=== PATIENT | female | born 1940 | race Caucasian/White ===

== ENCOUNTER → 2017-09-12 | Outpatient (CLI) | payer MEDICARE ==
--- NOTE | 2017-09-12 14:15 | RAD ---
DATE: 09/12/2017 EXAM: MAMMO KELLY SCREENING BILATERAL HISTORY: Screening COMPARISON: One year ago This study was interpreted with the benefit of Computerized Aided Detection (CAD). FINDINGS: Breast Density: SCATTERED The breast parenchyma shows scattered fibroglandular densities. Breast parenchyma level B. There has not been a significant change in the appearance of the breasts compared to the previous exam IMPRESSION: Benign finding BI-RADS CATEGORY: 2 BENIGN FINDING(S) RECOMMENDED FOLLOW-UP: 12M 12 MONTH FOLLOW-UP PQRS compliance statement: Patient information was entered into a reminder system with a target due date 09/12/2018 for the next mammogram. Mammography is a sensitive method for finding small breast cancers, but it does not detect them all and is not a substitute for careful clinical examination. A negative mammogram does not negate a clinically suspicious finding and should not result in delay in biopsying a clinically suspicious abnormality. "Our facility is accredited by the [employer] Mammography Program."
== END | disposition home or self-care (01) ==
LOC: MAMMO 11:30
PROVIDERS: ATTEND Physician Assistant Medical
DX: Z12.31 Encounter for screening mammogram for malignant neoplasm of breast (principal)
CPT/HCPCS: 77063; G0202; 77067

== ENCOUNTER → 2017-12-13 | Outpatient (CLI) | payer MEDICARE ==
--- NOTE | 2017-12-13 11:56 | RAD ---
3 views thoracic spine 12/13/2017 Clinical indication: Back pain with no known injury. Comparison: Two-view chest 02/24/2015. Findings: There is right convexity thoracic and left convexity lumbar scoliosis. There is diffuse bony demineralization. There is a moderate superior endplate compression deformity at T10 which was not present on the lumbar spine 07/15/2015 examination. 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 Multilevel thoracic spondylosis with osteophytic spurring. Impression: 1. Moderate T10 compression deformity not seen on the 2014 examination, age indeterminate. MRI could be performed for further evaluation, if clinically indicated. 2. Thoracolumbar scoliosis.
== END | disposition home or self-care (01) ==
LOC: PMG 11:07
PROVIDERS: ATTEND Physician Assistant Medical
DX: M41.85 Other forms of scoliosis, thoracolumbar region (principal); M47.894 Other spondylosis, thoracic region
CPT/HCPCS: 72072

== ENCOUNTER → 2018-02-02 | Outpatient (CLI) | payer MEDICARE ==
--- NOTE | 2018-02-03 11:37 | RAD ---
Indication: Postmenopausal screening for osteoporosis. Follow-up study. History of bilateral hip prostheses. Comparison: September 01, 2015 study of the lumbar spine. Bone Density: -BMD: (g/cm2) - AP Spine Total (L1-L4).......... 1.097. -Left forearm radius 33% 0.546. T-Score: - AP Spine Total (L1-L4)......... -0.7. - left forearm radius 33% ................ -2.4. Z-Score: - AP Spine Total (L1-L4).......... 0.8. - left forearm radius 33% ................. -0.1. World Health Organization criteria for BMD interpretation classify patients as Normal (T-score at or above -1.0), Osteopenic (T-score between -1.0 and -2.5), or Osteoporotic (T-score at or below -2.5). Impression: 1. AP Spine Total L1-L4---normal. Since the previous study, there has been an increase in the BMD of approximately 28% 2.Left forearm radius 33%--- osteopenia. No previous for comparison.
== END | disposition home or self-care (01) ==
LOC: DXRAD 09:56
PROVIDERS: ATTEND Physician Assistant Medical
DX: M85.88 Other specified disorders of bone density and structure, other site (principal); Z78.0 Asymptomatic menopausal state; Z85.3 Personal history of malignant neoplasm of breast
CPT/HCPCS: 77081

== ENCOUNTER → 2018-04-11 | Outpatient (CLI) | payer MEDICARE ==
--- NOTE | 2018-04-11 16:35 | RAD ---
EXAM: Left hip, 2 views. HISTORY: Pain. COMPARISON: None. FINDINGS: Frontal and frog-leg views of the left hip are obtained. There is a left hip arthroplasty in expected position. There is degenerative endplate remodeling with disc space narrowing and osteophytosis at the lumbosacral junction. IMPRESSION: 1. No acute osseous finding. 2. Left hip arthroplasty in expected position. 3. Degenerative change at the lumbosacral junction. Electronically signed by: Raiza Walton MD (04/11/2018 4:31 PM) [facility]
== END | disposition home or self-care (01) ==
LOC: PMG 14:11
PROVIDERS: ATTEND Physician Assistant Medical
DX: M25.552 Pain in left hip (principal)
CPT/HCPCS: 73502

== ENCOUNTER → 2018-07-17 | Outpatient (CLI) | payer MEDICARE ==
[2018-07-17 08:50] LABS: ALBUMIN 3.9 g/dL (3.4-5.0); CALCIUM 9.5 mg/dL (8.5-10.1); CREATININE 0.8 mg/dL (0.6-1.0); GFR 69.9; POTASSIUM 4.1 mmol/L (3.5-5.1); TOTAL BILIRUBIN 0.5 mg/dL (0.2-1.0); TOTAL PROTEIN 7.9 g/dL (6.4-8.2)
[2018-07-17 13:06] LABS: THYROID STIM HORMONE (TSH) 2.2 uIU/mL (0.358-3.740)
== END | disposition home or self-care (01) ==
LOC: LAB 08:09
PROVIDERS: ATTEND Nurse Practitioner
DX: I10 Essential (primary) hypertension (principal); Z85.3 Personal history of malignant neoplasm of breast
CPT/HCPCS: 36415; 80053; 80061; 84443

== ENCOUNTER → 2018-09-25 | Outpatient (CLI) | payer MEDICARE ==
--- NOTE | 2018-09-26 10:11 | RAD ---
DATE: 09/26/2018 EXAM: DIGITAL SCREEN BILAT W/CAD HISTORY: Routine screening. COMPARISON: Previous mammogram from 2017 and 2016 This study was interpreted with the benefit of Computerized Aided Detection (CAD). FINDINGS: Breast Density: SCATTERED The breast parenchyma shows scattered fibroglandular densities. Breast parenchyma level B. The skin and nipples are within normal limits. No suspicious calcifications, spiculated mass or area of architectural distortion. Bilateral intramammary lymph nodes are seen. IMPRESSION: No mammographic evidence of malignancy. Stable mammogram. BI-RADS CATEGORY: 2 BENIGN FINDING(S) RECOMMENDED FOLLOW-UP: 12M 12 MONTH FOLLOW-UP PQRS compliance statement: Patient information was entered into a reminder system with a target due date for the next mammogram. Mammography is a sensitive method for finding small breast cancers, but it does not detect them all and is not a substitute for careful clinical examination. A negative mammogram does not negate a clinically suspicious finding and should not result in delay in biopsying a clinically suspicious abnormality. "Our facility is accredited by the [employer] Mammography [employer]."
== END | disposition home or self-care (01) ==
LOC: MAMMO 10:04
PROVIDERS: ATTEND Physician Assistant Medical
DX: Z12.31 Encounter for screening mammogram for malignant neoplasm of breast (principal)
CPT/HCPCS: 77067

== ENCOUNTER → 2018-11-27 | Outpatient (CLI) | payer MEDICARE ==
--- NOTE | 2018-11-27 08:29 | RAD ---
EXAM: Thoracic spine, 3 views. HISTORY: Pain. COMPARISON: None. FINDINGS: Frontal, lateral and swimmer's views of the thoracic spine are obtained. There is severe S-shaped rotatory scoliosis of the thoracic spine, with dextrocurvature centered at the upper mid thoracic levels and levocurvature centered at the thoracolumbar junction. There is a T7 compression fracture with vertebroplasty changes. There is slight decreased height at the mid and lower thoracic levels, likely chronic in etiology. There is degenerative endplate remodeling with osteophytosis at multiple levels. There is leftward lateral translation of the mid lumbar levels on the lower lumbar levels. IMPRESSION: 1. T7 compression fracture with vertebroplasty changes. 2. Severe S-shaped rotatory scoliosis of the thoracolumbar spine with associated multilevel degenerative changes. 3. Mild decreased vertebral body height at multiple mid and lower thoracic levels, a component of which is accentuated due to aforementioned scoliosis. This is likely chronic. Electronically signed by: Raiza Walton MD (11/27/2018 8:25 AM) [id number]
== END | disposition home or self-care (01) ==
LOC: PMG 07:39
PROVIDERS: ATTEND Physician Assistant Medical
DX: M48.54XA Collapsed vertebra, not elsewhere classified, thoracic region, initial encounter for fracture (principal); M41.85 Other forms of scoliosis, thoracolumbar region
CPT/HCPCS: 72072

== ENCOUNTER → 2019-09-26 | Outpatient (CLI) | payer MEDICARE ==
--- NOTE | 2019-09-27 10:23 | RAD ---
DATE: 09/26/2019 10:00 AM EXAM: DIGITAL SCREEN BILAT W/CAD HISTORY: Screening COMPARISON: September 25, 2018. September 12, 2017. Bilateral CC and MLO views of the breasts were performed. This study was interpreted with the benefit of Computerized Aided Detection (CAD). FINDINGS: Breast Density: SCATTERED The breast parenchyma shows scattered fibroglandular densities. Breast parenchyma level B Several bilateral breast masses, unchanged compared to prior No new suspicious masses, microcalcifications or architectural distortion is present to suggest malignancy in either breast. The visualized axillae are unremarkable. IMPRESSION: No mammographic evidence of malignancy. BI-RADS CATEGORY: 2 BENIGN FINDING(S) RECOMMENDED FOLLOW-UP: 12M 12 MONTH FOLLOW-UP Annual screening mammography is recommended, unless clinically indicated sooner based on symptoms or change in physical exam. PQRS compliance statement: Patient information was entered into a reminder system with a target due date one year for the next mammogram. Mammography is a sensitive method for finding small breast cancers, but it does not detect them all and is not a substitute for careful clinical examination. A negative mammogram does not negate a clinically suspicious finding and should not result in delay in biopsying a clinically suspicious abnormality. "Our facility is accredited by the [employer] Mammography [employer]."
== END | disposition home or self-care (01) ==
LOC: MAMMO 09:57
PROVIDERS: ATTEND Physician Assistant Medical
DX: Z12.31 Encounter for screening mammogram for malignant neoplasm of breast (principal); N63.20 Unspecified lump in the left breast, unspecified quadrant; N63.10 Unspecified lump in the right breast, unspecified quadrant
CPT/HCPCS: 77067

== ENCOUNTER → 2020-09-02 | Outpatient (CLI) | payer MEDICARE ==
[2020-09-02 13:06] LABS: CALCIUM 9.3 mg/dL (8.5-10.1); GFR 53.8; MAGNESIUM 2.3 mg/dL (1.8-2.4); POTASSIUM 3.8 mmol/L (3.5-5.1)
== END | disposition home or self-care (01) ==
LOC: LAB 11:53
PROVIDERS: ATTEND Nurse Practitioner
DX: R00.2 Palpitations (principal)
CPT/HCPCS: 36415; 80048; 83735; 84443

== ENCOUNTER → 2020-09-26 | Outpatient (CLI) | payer MEDICARE ==
--- NOTE | 2020-09-26 12:02 | RAD ---
DATE: 09/26/2020 11:01 AM EXAM: DIGITAL SCREEN BILAT W/CAD HISTORY: Screening COMPARISON: 09/26/19 Bilateral full field craniocaudal and mediolateral oblique images were obtained using digital technique. This study was interpreted with the benefit of Computerized Aided Detection (CAD). FINDINGS: Breast Density: FATTY The Breast Parenchyma is primarily fatty replaced. Breast parenchyma level density A. No suspicious masses, microcalcifications or architectural distortion is present to suggest malignancy in either breast. The visualized axillae are unremarkable. IMPRESSION: No mammographic evidence of malignancy. BI-RADS CATEGORY: 1 NEGATIVE RECOMMENDED FOLLOW-UP: 12M 12 MONTH FOLLOW-UP Annual screening mammography is recommended, unless clinically indicated sooner based on symptoms or change in physical exam. PQRS compliance statement: Patient information was entered into a reminder system with a target due date for the next mammogram. Mammography is a sensitive method for finding small breast cancers, but it does not detect them all and is not a substitute for careful clinical examination. A negative mammogram does not negate a clinically suspicious finding and should not result in delay in biopsying a clinically suspicious abnormality. "Our facility is accredited by the [employer] Mammography Program."
== END ==
LOC: MAMMO 10:36
PROVIDERS: ATTEND Physician Assistant Medical
DX: Z12.31 Encounter for screening mammogram for malignant neoplasm of breast (principal)
CPT/HCPCS: 77067

== ENCOUNTER → 2021-08-28 | Outpatient (CLI) | payer MEDICARE ==
--- NOTE | 2021-08-29 08:03 | RAD ---
INDICATION: Reason: RIGHT SHOULDER PAIN / Spl. Instructions: / History: COMPARISON: None. IMPRESSION: Right shoulder: 4 views obtained. Degenerative changes are identified of the right shoulder with oste ophyte formation. No evidence of dislocation. Linear opacity partially visualized right lung base cou ld be from scarring or atelectasis. 9 mm peripheral sclerotic focus right proximal humerus with centr al lucency which has a nonspecific appearance but could be related to the patient's degenerative leonard ges. A definite acute fracture line is not seen. No evidence of dislocation. Electronically signed by: Alden Haskins MD (08/29/2021 8:01 AM) [id number]
== END ==
LOC: RAD 14:50
PROVIDERS: ATTEND Physician Assistant Medical
DX: M25.711 Osteophyte, right shoulder (principal); M19.011 Primary osteoarthritis, right shoulder
CPT/HCPCS: 73030

== ENCOUNTER → 2021-10-13 | Outpatient (CLI) | payer MEDICARE ==
--- NOTE | 2021-10-13 17:06 | RAD ---
Bilateral digital screening mammogram: Reason for examination: Routine screening. Comparison is made to previous mammograms dated 09/26/2020 and 09/26/2019. Interpretation was made with the benefit of CAD. Findings: Breast density: Category B. There are scattered areas of fibroglandular density. There are no dominant masses, suspicious calcifications or architectural distortions. Impression: No evidence of malignancy. Recommend routine screening. BI-RADS Category 1: Negative. This patient's information has been entered into a reminder system for the patient to be notified wit h the results of her examination and a target date for the next mammogram. Electronically signed by: Siena Tanner MD (10/13/2021 5:03 PM) [id number]
== END ==
LOC: MAMMO 10:52
PROVIDERS: ATTEND Physician Assistant Medical
DX: Z12.31 Encounter for screening mammogram for malignant neoplasm of breast (principal)
CPT/HCPCS: 77067

== ENCOUNTER → 2022-01-22 | Outpatient (CLI) | payer MEDICARE ==
--- NOTE | 2022-01-22 15:51 | RAD ---
EXAM: Pelvis and left hip, 4 views. HISTORY: Pain. Fall. COMPARISON: 04/11/2018. FINDINGS: And frontal views of the pelvis and frontal and frog-leg views of the left hip are obtained . There are bilateral hip arthroplasties in expected position. There is no evidence of asymmetric luis alberto er wear or osteolysis. There is a generator within the left buttock with leads extending cephalad bey ond the [id number]. There is lumbar scoliosis and advanced degenerative change involving the visua lized lower lumbar spine. There is subchondral sclerosis involving the sacroiliac joints. There is a sclerotic lesion within the right femoral diaphysis measuring approximately 8.0 cm, possibly due to b one infarction. There is bone demineralization. IMPRESSION: 1. Bilateral hip arthroplasties in expected position. 2. Lumbar scoliosis and advanced degenerative change involving the lower lumbar spine. 3. Degenerative change involving the sacroiliac joints. 4. Bone demineralization. 5. Sclerotic lesion within the right femur, not formally assessed on this exam. The appearance favors a bone infarct. Electronically signed by: Raiza Walton MD (01/22/2022 3:48 PM) [id number]
== END ==
LOC: RAD 12:05
PROVIDERS: ATTEND Nurse Practitioner Family
DX: M47.816 Spondylosis without myelopathy or radiculopathy, lumbar region (principal); M41.86 Other forms of scoliosis, lumbar region; M25.552 Pain in left hip
CPT/HCPCS: 73502